=== PATIENT | female | born 1950 | race Caucasian/White ===

== ENCOUNTER 2017-06-27 09:30 | Emergency (ER) | payer MEDICARE, BC ==
[~2017-06-27] VITALS: Ht 167.6 cm; Wt 73.9 kg
[2017-06-27] MEDS ORDERED: SODIUM CHLORIDE 0.9% 1000ML 1,000 ML IV STA (10:01)
[2017-06-27] MEDS ORDERED: PROMETHAZINE 12.5MG/ NACL 0.9% 12.5 MG/50 ML BAG IV ONE ×2 (10:15→13:30)
[2017-06-27 10:19] LABS: BASOPHILS % 0.1 % (0.0-1.0); EOSINOPHILS % 0.5 % (0.0-6.0); HEMOGLOBIN 12.6 g/dL (12.0-16.0); LYMPHOCYTES # (AUTO) 0.5 (1.0-3.2); LYMPHOCYTES % 6.8 % (18.0-39.1); MEAN CORPUSCULAR HEMOGLOBIN 30.2 pg (28-32); MEAN CORPUSCULAR HGB CONC 34.1 g/dL (31-35); MEAN CORPUSCULAR VOLUME 88.7 fL (81-99); MONOCYTES # (AUTO) 0.5 (0.2-0.8); MONOCYTES % 6.9 % (4.4-11.3); NEUTROPHILS # (AUTO) 6.3 (2.1-6.9); NEUTROPHILS % 85.3 % (38.7-80.0); PLATELET COUNT 161 x10e3/uL (140-360); RED BLOOD COUNT 4.17 x10e6/uL (3.6-5.1); RED CELL DISTRIBUTION WIDTH 12.9 % (11.7-14.4)
[2017-06-27 10:24] LABS: BILIRUBIN,URINE 1+ (NEGATIVE); CLARITY,URINE CLOUDY (CLEAR); COLOR,URINE YELLOW (YELLOW); LEUKOCYTE ESTERASE ,URINE NEGATIVE (NEGATIVE); NITRITE,URINE NEGATIVE (NEGATIVE)
[2017-06-27 10:25] LABS: KETONES,URINE NEGATIVE (NEGATIVE); PROTEIN,URINE DIPSTICK NEGATIVE (NEGATIVE); URINE UROBILINOGEN 0.2 mg/dL (0.2 - 1)
[2017-06-27 10:34] LABS: EPITHELIAL CELLS,URINE FEW /LPF; RBC,URINE 0-5 /HPF (0-5)
[2017-06-27 10:36] LABS: ALANINE AMINOTRANSFERASE 130 IU/L (0-55); ALBUMIN 3.6 g/dL (3.5-5.0); ALBUMIN/GLOBULIN RATIO 1.1 (0.8-2.0); ALKALINE PHOSPHATASE 373 IU/L (40-150); ANION GAP 12.6 mmol/L (8-16); BLOOD UREA NITROGEN 14 mg/dL (7-26); BUN/CREATININE RATIO 16 (6-25); CALCIUM 9.7 mg/dL (8.4-10.2); CARBON DIOXIDE 26 mmol/L (22-29); CHLORIDE 103 mmol/L (98-107); CREATINE KINASE 35 IU/L (29-168); CREATININE, SERUM 0.86 mg/dL (0.57-1.11); EST GLOMERULAR FILTRATION RATE > 60 ML/MIN (60-); GLUCOSE 114 mg/dL (74-118); POTASSIUM 3.6 mmol/L (3.5-5.1); SODIUM 138 mmol/L (136-145)
--- NOTE | 2017-06-27 10:49 | Diagnostic Imaging Report ---
PROCEDURE: Frontal and lateral views of the chest. COMPARISON: Chest 2 views 01/31/2009. INDICATIONS: FEVER, VOMITING FINDINGS: Lines/tubes: None. Lungs: The lungs are well inflated and clear. There is no evidence of pneumonia or pulmonary edema. Pleura: There is no pleural effusion or pneumothorax. Heart and mediastinum: The heart and the mediastinum are normal. Bones: No acute bony abnormality. Degenerative changes of the thoracic spine. IMPRESSION: No acute radiographic abnormality. Dictated by: Shon Stephens M.D. on 06/27/2017 at 10:50 Electronically approved by: Shon Stephens M.D. on 06/27/2017 at 10:50
--- NOTE | 2017-06-27 12:44 | Diagnostic Imaging Report ---
PROCEDURE:US ABDOMEN LIMITED COMPARISON:None. INDICATIONS:elevated liver enzymes, ruq pain TECHNIQUE: Maya-scale and color doppler transverse and longitudinal images of the right upper quadrant of the abdomen were obtained. FINDINGS: Liver: 14.0 cm in right mid-clavicular line. Increased echogenicity. No masses. Main portal vein: 0.8 cm, hepatopetal flow Gallbladder: 1.6 cm rounded echogenic mobile focus in the gallbladder neck which does not show posterior acoustic shadowing or vascularity. No wall thickening or pericholecystic fluid. Common Bile Duct: 1.1 cm, moderately dilated. No intraluminal filling defects. Sonographic Lopez's sign: Negative Right kidney: 9.2 cm. Normal echogenicity. No solid masses or hydronephrosis. Pancreas: The visualized portions are unremarkable. Inferior vena cava: Patent Aorta: Proximal portion is obscured by overlying bowel gas. Mid and distal aorta are unremarkable. Ascites: None in the right upper quadrant of the abdomen. CONCLUSION: 1. Findings in the gallbladder likely represent sludge ball/tumefactive sludge. No echogenic stones. No sonographic evidence of cholecystitis. 2. Diffuse hepatic steatosis. No focal lesions. 3. Moderate dilation of the common bile duct. No intraluminal filling defects are noted. Contrast-enhanced MRI abdomen/MRCP would be helpful for evaluation, if there is clinical concern for choledocholithiasis. Zaid Estrada M.D. Dictated by: Zaid Estrada M.D. on 06/27/2017 at 12:45 Electronically approved by: Zaid Estrada M.D. on 06/27/2017 at 12:45
[2017-06-27 13:29] VITALS: BP 143/67
== END 2017-06-27 14:03 | disposition home or self-care (01) ==
LOC: ER 09:30
DX: R11.2 Nausea with vomiting, unspecified (principal); I10 Essential (primary) hypertension; E78.5 Hyperlipidemia, unspecified; K21.9 Gastro-esophageal reflux disease without esophagitis; E03.9 Hypothyroidism, unspecified
CPT/HCPCS: 36415; 71046; 76705; 80053; 81001; 82550; 82553; 84484; 85025; 99284; J2550; J7030

== ENCOUNTER → 2018-02-26 | Day surgery (SDC) | payer MEDICARE, BC ==
[2018-02-24 11:57] LABS: BASOPHILS % 0.4 % (0.0-1.0); EOSINOPHILS # (AUTO) 0.2 (0.0-0.4); HEMATOCRIT 35.1 % (34.2-44.1); HEMOGLOBIN 11.5 g/dL (12.0-16.0); LYMPHOCYTES # (AUTO) 1.4 (1.0-3.2); MEAN CORPUSCULAR HEMOGLOBIN 31.2 pg (28-32); MEAN CORPUSCULAR HGB CONC 32.8 g/dL (31-35); MEAN CORPUSCULAR VOLUME 95.1 fL (81-99); MONOCYTES # (AUTO) 0.4 (0.2-0.8); MONOCYTES % 8.7 % (4.4-11.3); NEUTROPHILS # (AUTO) 2.9 (2.1-6.9); NEUTROPHILS % 58.7 % (38.7-80.0); PLATELET COUNT 142 x10e3/uL (140-360); RED BLOOD COUNT 3.69 x10e6/uL (3.6-5.1); RED CELL DISTRIBUTION WIDTH 13.1 % (11.7-14.4)
[2018-02-24 12:19] LABS: ALANINE AMINOTRANSFERASE 10 IU/L (0-55); ALBUMIN 3.8 g/dL (3.5-5.0); ALBUMIN/GLOBULIN RATIO 1.5 (0.8-2.0); ALKALINE PHOSPHATASE 90 IU/L (40-150); ANION GAP 10.4 mmol/L (8-16); BLOOD UREA NITROGEN 14 mg/dL (7-26); BUN/CREATININE RATIO 17 (6-25); CALCIUM 9.6 mg/dL (8.4-10.2); CARBON DIOXIDE 32 mmol/L (22-29); CHLORIDE 107 mmol/L (98-107); CREATININE, SERUM 0.84 mg/dL (0.57-1.11); EST GLOMERULAR FILTRATION RATE > 60 ML/MIN (60-); GLUCOSE 94 mg/dL (74-118); POTASSIUM 4.4 mmol/L (3.5-5.1); SODIUM 145 mmol/L (136-145)
[~2018-02-26] MED LIST: BUPIVACAINE HCL 0.5% INJ 30 ML VIAL INJ ONE; BUTALB-ACETAMI1 EACH PO; DEXAMETHASONE SOD PHOS INJ 4 MG/ML VIAL ONE; DEXILANT60 MG PO; FAMOTIDINE20 MG PO; FENTANYL CITRATE/PF 100MCG/2 ML INJ ONE; GLYCOPYRROLATE INJ 1MG/ 5 ML SYR ONE; HEMP OIL PO; HYDRALAZINE HCL 20 MG/ML VIAL ONE; HYDROMORPHONE 2MG/ML 2 MG/ML ML ONE; LEVOFLOXACIN 500MG/D5W 100ML 100 ML IV ONE; LEVOTHYROXINE100 MC1 PO; LIDOCAINE HCL 2% LOCAL INJ 5 ML SDV VIAL INJ ONE; LYRICA75 MG PO; MAXALT MLT5 MG PO; MEPERIDINE HCL INJ 50 MG/ML INJ ONE; METOPROLOL TART50 MG PO; MIDAZOLAM HCL 2 MG/2 ML VIAL ONE; MULTI-VITAMIN1 EACH PO; NEOSTIGMINE 5 MG/5ML SYR ONE; OXYCONTIN10 MG PO; PRAVASTATIN SOD40 MG PO; PROMETHAZINE HCL (IM) 25 MG/ML VIAL ONE; PROPOFOL IV EMULSION 10 MG/ML 20 ML VIAL ONE; ROCURONIUM BROMIDE 10 MG/ML 5ML VIAL ONE; SEVOFLURANE INHAL SOLN 250 ML PEN BTL ONE; SUCRALFATE1 GM PO; VALTREX500 MG PO; ZOLPIDEM TARTRA10 MG PO
--- OUTSIDE RECORDS SUMMARY | 2018-02-26 07:54 | XMS REPORT | Clinical Summary ---
Author Author [facility] Address Unknown Phone Unavailable Care Team Providers Care Music Internship Name Role Phone Arslan Frazier PCP Allergies Comments Active Allergy Reactions Severity Noted Date Adhesive Bandage Medium 01/28/2018 Diarrhea Erythromycin Nausea And 11/20/2017 Vomiting Ibuprofen Hives 11/20/2017 Penicillins Rash Low 11/20/2017 Sulfa (Sulfonamide Nausea And 11/20/2017 Antibiotics) Vomiting Headache Ondansetron Hcl (Pf) Other (See 11/20/2017 Comments) Medications End Date Status Medication Sig Dispensed Refills Start Date Active dexlansoprazole Take 60 mg by 0 (DEXILANT) 60 mg capsule mouth 2 (two) times daily. Active levothyroxine (SYNTHROID, Take 100 mcg 0 LEVOTHROID) 100 MCG by mouth tablet Every morning on an empty stomach. Active pravastatin (PRAVACHOL) Take 40 mg by 0 40 MG tablet mouth daily. Active oxyCODONE (OXYCONTIN) 80 Take 80 mg by 0 MG 12 hr tablet mouth every 8 (eight) hours. Active metoprolol (LOPRESSOR) 50 Take 50 mg by 0 MG tablet mouth nightly. Active famotidine (PEPCID) 20 MG Take 40 mg by 0 tablet mouth nightly. Active estradiol (ESTRACE) 0.01 Place 2 g 0 % (0.1 mg/gram) vaginal vaginally cream once a week. Active valACYclovir (VALTREX) Take 500 mg 0 500 MG tablet by mouth daily. Active zolpidem (AMBIEN) 10 mg Take 10 mg by 0 tablet mouth every night as needed for Insomnia. Active rizatriptan (MAXALT-METAL MACHINE SETTER) Take 5 mg by 0 5 MG disintegrating mouth as tablet needed for Migraine May repeat in 2 hours if needed . Active folic acid (FOLVITE) 1 MG Take 1 mg by 0 tablet mouth daily. Active thiamine (VITAMIN B-1) Take 100 mg 0 100 MG tablet by mouth daily. Active multivitamin capsule Take 1 0 capsule by mouth daily. Active polyethylene glycol Take 17 g by 0 (GLYCOLAX) 17 gram packet mouth as needed. Active butalbital-acetaminophen- Take 1 tablet 0 caffeine (FIORICET, by mouth as ESGIC) 50-325-40 mg per needed for tablet Headaches. 11/20/2017 Discontinued paeeeyescy-tvbhpfv-[id number] Take by mouth 0 ne 50-325-40 mg Tab per as needed. tablet Active Problems Not on file Encounters Care Team Description Date Type Specialty Joleen Cabrera MD 01/28/2018 Anesthesia Gastroenterology Event Jose Coreas MD ERCP,BALLOON SWEEPING 01/28/2018 Surgery Gastroenterology Jose Coreas MD 01/28/2018 Hospital Gastroenterology Encounter Resource, [facility] Preadmit Phone 11/20/2017 Hospital Pre-Admission Testing Encounter after 02/25/2017 Social History Date Tobacco Use Types Packs/Day Years Used Never Smoker Smokeless Tobacco: Never Used Alcohol Use Drinks/Week oz/Week Comments No Sex Assigned at Date Recorded Not on file Industry Job Start Date Occupation Not on file Not on file Not on file Travel End Travel History Travel Start No recent travel history available. Last Filed Vital Signs Time Taken Vital Sign Reading 01/28/2018 3:05 PM ARBORIST REPRESENTATIVE Blood Pressure 134/72 01/28/2018 3:05 PM ARBORIST REPRESENTATIVE Pulse 80 01/28/2018 3:05 PM ARBORIST REPRESENTATIVE Temperature 36.7 C (98.1 F) 01/28/2018 3:05 PM ARBORIST REPRESENTATIVE Respiratory Rate 15 01/28/2018 3:05 PM ARBORIST REPRESENTATIVE Oxygen Saturation 97% - Inhaled Oxygen - Concentration 01/28/2018 12:47 PM ARBORIST REPRESENTATIVE Weight 67 kg (147 lb 12.8 oz) 01/28/2018 12:47 PM ARBORIST REPRESENTATIVE Height 167.6 cm (5' 6") 01/28/2018 12:47 PM ARBORIST REPRESENTATIVE Body Mass Index 23.86 Plan of Treatment Not on file Procedures Comments Procedure Name Priority Date/Time Associated Diagnosis [place] ERCP Routine 01/28/2018 2:32 PM ARBORIST REPRESENTATIVE REPORT OF PROCEDURE - 01/28/2018 ENDOSCOPY URL 2:29 PM ARBORIST REPRESENTATIVE ERCP,BALLOON DILATATION 01/28/2018 Calculus of bile duct 1:00 PM ARBORIST REPRESENTATIVE with cholangitis without obstruction, unspecified cholangitis acuity Imaging of gastrointestinal tract abnormal Common biliary duct obstruction Special Needs (C-ARM) ERCP,STENT REMOVAL 01/28/2018 Calculus of bile duct 1:00 PM ARBORIST REPRESENTATIVE with cholangitis without obstruction, unspecified cholangitis acuity Imaging of gastrointestinal tract abnormal Common biliary duct obstruction Special Needs (C-ARM) ERCP,PAPILLOTOMY 01/28/2018 Calculus of bile duct 1:00 PM ARBORIST REPRESENTATIVE with cholangitis without obstruction, unspecified cholangitis acuity Imaging of gastrointestinal tract abnormal Common biliary duct obstruction Special Needs (C-ARM) PROCEDURE W/ C-ARM 01/28/2018 Calculus of bile duct 1:00 PM ARBORIST REPRESENTATIVE with cholangitis without obstruction, unspecified cholangitis acuity Imaging of gastrointestinal tract abnormal Common biliary duct obstruction Special Needs (C-ARM) ERCP,BALLOON SWEEPING 01/28/2018 Calculus of bile duct 1:00 PM ARBORIST REPRESENTATIVE with cholangitis without obstruction, unspecified cholangitis acuity Imaging of gastrointestinal tract abnormal Common biliary duct obstruction Special Needs (C-ARM) after 02/25/2017 Results * [place] Endoscopic Retrograde Cholangiopancreatography (01/28/2018 2:32 PM ARBORIST REPRESENTATIVE) Narrative Performed At Addendum Begins RIS FINAL REPORT TECHNIQUE: Fluoroscopic images from endoscopic retrograde cholangiopancreatography were submitted for interpretation. INDICATION: Bile duct stones, abnormal imaging. COMPARISON: None. FINDINGS: Images show interrogation of the biliary system. Fluoroscopy time: 3.2 minutes Dose: 43.6 mGy IMPRESSION: Fluoroscopic images from an endoscopic retrograde cholangiopancreatography not obtained by the undersigned. Please refer to the endoscopy note for details of the procedure and findings. Signed: Shayne Price MD Report Verified Date/Time:01/29/2018 07:46:49 Reading Location: [address] Radiology Reading Room Addendum Ends FLUOROSCOPIC UNIT UTILIZED-NO INTERPRETATION REQUESTED. Procedure Note Interface, External Ris In - 01/29/2018 7:54 AM ARBORIST REPRESENTATIVE Addendum Begins FINAL REPORT TECHNIQUE: Fluoroscopic images from endoscopic retrograde cholangiopancreatography were submitted for interpretation. INDICATION: Bile duct stones, abnormal imaging. COMPARISON: None. FINDINGS: Images show interrogation of the biliary system. Fluoroscopy time: 3.2 minutes Dose: 43.6 mGy IMPRESSION: Fluoroscopic images from an endoscopic retrograde cholangiopancreatography not obtained by the undersigned. Please refer to the endoscopy note for details of the procedure and findings. Signed: Shayne Price MD Report Verified Date/Time: 01/29/2018 07:46:49 Reading Location: [address] Radiology Reading Room Addendum Ends FLUOROSCOPIC UNIT UTILIZED-NO INTERPRETATION REQUESTED. Performing Organization Address City/State/Zipcode Phone Number GE RIS * REPORT OF PROCEDURE - ENDOSCOPY URL (01/28/2018 2:29 PM ARBORIST REPRESENTATIVE) Narrative Performed At after 02/25/2017 Insurance Payer Benefit Subscriber ID Type Phone Address Plan / Group MEDICARE MEDICARE A xxxxxxxxxxx Medicare B BLUE CROSS/BLUE SHIELD BCBS xxxxxxxxxxxx [facility] [phone] [address] [place] [address] [place]) [place] [address]
--- OUTSIDE RECORDS SUMMARY | 2018-02-26 07:54 | XMS REPORT ---
Author Author [facility] Address Unknown Phone Unavailable Care Team Providers Care Management Professor Name Role Phone Krishan MEJÍA Unavailable Unavailable Payers Payer Name Policy Type Policy Number Effective Date Expiration Date Problems This patient has no known problems. Allergies, Adverse Reactions, Alerts Allergy Name Allergy Type Status Severity Reaction(s) Onset Date Inactive Date Treating Clinician Comments Sulfa (Sulfonamide Antibiotics) DA Active U 2017-09-27 00:00:00 morphine DA Active U 2016-06-26 00:00:00 ibuprofen DA Active U 2016-06-26 00:00:00 erythromycin base DA Active U 2016-06-26 00:00:00 ondansetron DA Active U 2016-06-26 00:00:00 penicillin G DA Active U 2016-06-26 00:00:00 Medications This patient has no known medications. Results Test Description Test Time Test Comments Text Results Atomic Results Result Comments [place], ERCP 2018-01-29 07:46:00 Reason for exam:->bile duct stones,abnormal imaging Addendum BeginsFINAL REPORT TECHNIQUE: Fluoroscopic images from endoscopic retrograde cholangiopancreatography were submitted for interpretation. INDICATION: Bile duct stones, abnormal imaging. COMPARISON: None. FINDINGS:Images show interrogation of the biliary system. Fluoroscopy time: 3.2 minutesDose: 43.6 mGy IMPRESSION:Fluoroscopic images from an endoscopic retrograde cholangiopancreatography not obtained by the undersigned. Please refer to the endoscopy note for details of the procedure and findings. Signed: Shayne Price Verified Date/Time: 01/29/2018 07:46:49 Reading Location: [address] Radiology Reading RoomAddendum EndsFLUOROSCOPIC UNIT UTILIZED-NO INTERPRETATION REQUESTED. T 2 VIEWS [facility] [address], [place] [address] Patient Name: FIDE WILDE MR #: [id number] : 1950 Age/Sex: 67/F Req #: [id number] Adm Physician: Ordered by: GISSELLE MEJÍA MD Report #: [id number] Location: ER Room/Bed: Procedure: [id number] DX/CHEST 2 VIEWS Exam Date: 06/27/17 Exam Time: 1030 REPORT STATUS: Signed PROCEDURE: Frontal and lateral views of the chest. COMPARISON: Chest 2 views 01/31/2009. INDICATIONS: FEVER, VOMITING FINDINGS: Lines/tubes: None. Lungs: The lungs are well inflated and clear. There is no evidence of pneumonia or pulmonary edema. Pleura: There is no pleural effusion or pneumothorax. Heart and mediastinum: The heart and the mediastinum are normal. Bones: No acute bony abnormality. Degenerative changes of the thoracic spine. IMPRESSION: No acute radiographic abnormality. Dictated by: June Harrison M.D. on 06/27/2017 at 10:50 Electronically approved by: June Harrison M.D. on 06/27/2017 at 10:50 Dictated By: JUNE HARRISON MD 1050 Transcribed By: ARIANA on 06/27/17 1050 COPY TO: GISSELLE MEJÍA MD ABDOMEN LIMITED [facility] [address] [place], [place] [address] Patient Name: FIDE WILDE MR #: [id number] : 1950 Age/Sex: 67/F Req #: [id number] Adm Physician: Ordered by: GISSELLE MEJÍA MD Report #: [id number] Location: Room/Bed: Procedure: [id number] US/US ABDOMEN LIMITED Exam Date: 06/27/17 Exam Time: 1113 REPORT STATUS: Signed PROCEDURE: US ABDOMEN LIMITED COMPARISON: None. INDICATIONS: elevated liver enzymes, ruq pain TECHNIQUE: Maya-scale and color doppler transverse and longitudinal images of the right upper quadrant of the abdomen were obtained. FINDINGS: Liver: 14.0 cm in right mid-clavicular line. Increased echogenicity. No masses. Main portal vein: 0.8 cm, hepatopetal flow Gallbladder: 1.6 cm rounded echogenic mobile focus in the gallbladder neck which does not show posterior acoustic shadowing or vascularity. No wall thickening or pericholecystic fluid. Common Bile Duct: 1.1 cm, moderately dilated. No intraluminal filling defects. Sonographic Lopez's sign: Negative Right kidney: 9.2 cm. Normal echogenicity. No solid masses or hydronephrosis. Pancreas: The visualized portions are unremarkable. Inferior vena cava: Patent Aorta: Proximal portion is obscured by overlying bowel gas. Mid and distal aorta are unremarkable. Ascites: None in the right upper quadrant of the abdomen. CONCLUSION: 1. Findings in the gallbladder likely represent sludge ball/tumefactive sludge. No echogenic stones. No sonographic evidence of cholecystitis. 2. Diffuse hepatic steatosis. No focal lesions. 3. Moderate dilation of the common bile duct. No intraluminal filling defects are noted. Contrast- enhanced MRI abdomen/MRCP would be helpful for evaluation, if there is clinical concern for choledocholithiasis. Awais Estrada M.D. Dictated by: Awais Estrada M.D. on 06/27/2017 at 12:45 Electronically approved by: Awais Estrada M.D. on 06/27/2017 at 12:45 Dictated By: AWAIS ESTRADA MD 1245 Transcribed By: ARIANA on 06/27/17 1245 COPY TO: GISSELLE MEJÍA MD
--- OUTSIDE RECORDS SUMMARY | 2018-02-26 07:54 | XMS REPORT ---
Author Author Myesha Villalobos [facility] [employer] Address Unknown Phone Unavailable Care Team Providers Care Metal Furnace Operator Name Role Phone Myesha Villalobos CP Unavailable Allergies, Adverse Reactions, Alerts Substance Reaction Event Type Penicillin Rash Drug Allergy Zofran Migraine Drug Allergy Ibuprofen rash Drug Allergy Erythromycin nausea/vomitting Drug Allergy Problems Problem Type Condition Code Onset Dates Condition Status Problem Gastritis and duodenitis K29.90 Active Assessment Senile osteoporosis M81.0 Active Problem Senile osteoporosis M81.0 Active Assessment Gastritis and duodenitis K29.90 Active Assessment Counseling NOS Z71.9 Active Medications Medication Code System Code Instructions Start Date End Date Status Dosage Dexilant [facility] 31161100559 60 MG Orally Once a day Active 1 capsule OxyContin [facility] 62752064730 80 MG Orally every 12 hrs Active 1 tablet Metoprolol Tartrate [facility] 76884811756 50 MG Orally Twice a day Active 1 tablet with food Zolpidem Tartrate [facility] 76182835760 10 MG Orally Once a day Active 1 tablet at bedtime as needed Estrace [facility] 46274182021 0.1 MG/GM Vaginal Active not defined CoQ-10 [facility] 98457868570 150 MG Orally Once a day Active 1 capsule with a meal Cyanocobalamin [facility] 52536143842 1000 MCG/ML Injection Active 1 ml Lyrica [facility] 15938594934 75 MG Orally Once a day Active 1 capsule 1 to 3 hours before bedtime in the evening Levothyroxine Sodium [facility] 64337461996 100 MCG Orally Once a day Active 1 tablet on an empty stomach in the morning Calcium Citrate + D3 [facility] 44215278456 250-200 MG-UNIT Orally Twice a day Active 1 tablet Valacyclovir HCl [facility] 38727609128 500 MG Orally Once a day Active 1 tablet Multivitamin Adult ND 68729337670 - Orally Active not defined Magnesium Glycinate Plus NDC 0 Active not defined Lisha Allergy [facility] 40210592924 180 MG Orally Once a day Active 1 tablet as needed Rizatriptan Benzoate [facility] 86577602316 5 MG Orally Once a day Active 1 tablet as needed one time Pravastatin Sodium [facility] 22024240404 40 MG Orally Once a day Active 1 tablet Famotidine [facility] 67044155463 20 MG Orally Once a day Active 1 tablet at bedtime Folic Acid [facility] 53350988833 1 MG Orally Once a day Active 1 tablet MiraLax [facility] 87279792652 - Orally Active not defined Abmxlfjysh-ZITN-Yugelzwk [facility] 21988104715 50-325-40 MG Orally every 4 hrs Active 1 capsule as needed Prolia [facility] 96862862119 60 MG/ML Subcutaneous June 12, 2017 Active as directed B1 Natural ND 19501860097 250 MG Orally Active not defined Vital Signs Date/Time: June 12, 2017 Height 66 in Blood Pressure Diastolic 75 mm Hg Blood Pressure Systolic 134 mm Hg Weight 162.8 lbs Results No Known Results Summary Purpose e[employer] Submission
--- NOTE | 2018-02-26 15:05 | Operative Report ---
DATE OF PROCEDURE: February 26, 2018 PREOPERATIVE DIAGNOSIS: Chronic cholecystitis. POSTOPERATIVE DIAGNOSIS: Chronic cholecystitis. PROCEDURES 1. Diagnostic laparoscopy. 2. Laparoscopic cholecystectomy. BLAST HOLE DRILLER: None. ANESTHESIA: General. INDICATIONS AND FINDINGS: Patient is a 67-year-old female who previously had endoscopic retrograde cholangiopancreatography for common bile duct stones. Workup now reveals gallbladder sludge with persistent nausea. At surgery, the patient's gallbladder was very distended with adhesions involving omentum over the neck and fundus of the gallbladder. Cystic duct was about 3 mm in diameter. Common bile duct was about 6 mm in diameter. Liver, stomach and lower abdomen all appeared normal. TECHNIQUE: After adequate general endotracheal anesthesia, with the patient in the supine position, the abdomen was prepped and draped in sterile fashion with ChloraPrep solution. Skin in the umbilicus was infiltrated with 1/2 percent Marcaine. Incision was made in the umbilicus. Abdominal wall was elevated, and a Veress needle was introduced. Pneumoperitoneum was then created. A 10-mm trocar and cannula were then passed through the umbilical wound. Laparoscopic camera was introduced. Initial laparoscopy revealed the gallbladder to be very distended. Liver, stomach and lower abdomen all appeared normal. A 10-mm trocar and cannula were placed in the epigastrium, and two 5-mm trocars and cannulas were placed in the right upper quadrant. These were placed under direct vision. Fundus of the gallbladder was grasped and retracted superiorly. There were some adhesions involving the omentum which were lysed. Neck of the gallbladder was grasped and retracted laterally. Peritoneum over the neck of the gallbladder was incised. The gallbladder-cystic duct junction was dissected free. Cystic artery was also dissected free. Cystic artery was divided between Hemoclips close to the gallbladder. Cystic duct was dissected free. The neck of the gallbladder was completely dissected free. Cystic duct was then divided between Hemoclips with 3 clips being left on the common bile duct side. The gallbladder was then dissected free from the liver using scissors and electrocautery. Once it was entirely free, it was placed into an Endo pouch and brought through the epigastric cannula. There were no stones palpable. Gallbladder bed was inspected for hemostasis, which was seen to be adequate. It was irrigated with saline. All fluid aspirated and inspected once again for hemostasis, which was seen to be adequate. Instruments and cannulas were then removed. Pneumoperitoneum was evacuated. Wounds were then closed. Fascia in the umbilical and epigastric wounds closed with #0 Vicryl. Skin to all wounds closed with alfreda. Sterile dressings applied to each wound. Patient tolerated the procedure well. Estimated blood loss was 10 mL. There were no complications. All counts were correct. Patient was taken to the recovery room in satisfactory condition. Job#: [id number] cc:MD BG HARRY MD
[2018-02-26 15:45] VITALS: BP 130/70
== END | disposition home or self-care (01) ==
LOC: OR 07:51
PROVIDERS: ATTEND Surgery
DX: K81.1 Chronic cholecystitis (principal); K82.8 Other specified diseases of gallbladder; K21.9 Gastro-esophageal reflux disease without esophagitis; K44.9 Diaphragmatic hernia without obstruction or gangrene; K27.9 Peptic ulcer, site unspecified, unspecified as acute or chronic, without hemorrhage or perforation; G61.81 Chronic inflammatory demyelinating polyneuritis; I10 Essential (primary) hypertension; R00.1 Bradycardia, unspecified; E03.9 Hypothyroidism, unspecified; E78.5 Hyperlipidemia, unspecified; F41.9 Anxiety disorder, unspecified; Z88.1 Allergy status to other antibiotic agents; Z88.0 Allergy status to penicillin; Z88.2 Allergy status to sulfonamides; Z88.8 Allergy status to other drugs, medicaments and biological substances; Z01.810 Encounter for preprocedural cardiovascular examination; Z01.812 Encounter for preprocedural laboratory examination
CPT/HCPCS: 36415; 47562; 80053; 85025; 88304; 93005; J0360; J1100; J1170; J1956; J2001; J2175; J2250; J2550; J2704; J3490

== ENCOUNTER 2019-01-30 12:30 | Emergency (ER) | payer MEDICARE, BC ==
[~2019-01-30] VITALS: Ht 167.6 cm; Wt 73.9 kg
[~2019-01-30 12:30] MED LIST changes: -BUPIVACAINE HCL 0.5% INJ 30 ML VIAL INJ ONE; -DEXAMETHASONE SOD PHOS INJ 4 MG/ML VIAL ONE; -FENTANYL CITRATE/PF 100MCG/2 ML INJ ONE; -GLYCOPYRROLATE INJ 1MG/ 5 ML SYR ONE; -HYDRALAZINE HCL 20 MG/ML VIAL ONE; -HYDROMORPHONE 2MG/ML 2 MG/ML ML ONE; -LEVOFLOXACIN 500MG/D5W 100ML 100 ML IV ONE; -LIDOCAINE HCL 2% LOCAL INJ 5 ML SDV VIAL INJ ONE; -MEPERIDINE HCL INJ 50 MG/ML INJ ONE; -MIDAZOLAM HCL 2 MG/2 ML VIAL ONE; -NEOSTIGMINE 5 MG/5ML SYR ONE; -PROMETHAZINE HCL (IM) 25 MG/ML VIAL ONE; -PROPOFOL IV EMULSION 10 MG/ML 20 ML VIAL ONE; -ROCURONIUM BROMIDE 10 MG/ML 5ML VIAL ONE; -SEVOFLURANE INHAL SOLN 250 ML PEN BTL ONE
[2019-01-30 13:47] LABS: BASOPHILS % 0.3 % (0.0-1.0); EOSINOPHILS % 0.6 % (0.0-6.0); HEMATOCRIT 36.9 % (34.2-44.1); HEMOGLOBIN 12.6 g/dL (12.0-16.0); LYMPHOCYTES # (AUTO) 0.6 (1.0-3.2); LYMPHOCYTES % 9.3 % (18.0-39.1); MEAN CORPUSCULAR HEMOGLOBIN 30.7 pg (28-32); MEAN CORPUSCULAR HGB CONC 34.1 g/dL (31-35); MONOCYTES # (AUTO) 0.3 (0.2-0.8); MONOCYTES % 5.1 % (4.4-11.3); NEUTROPHILS # (AUTO) 5.5 (2.1-6.9); NEUTROPHILS % 84.2 % (38.7-80.0); PLATELET COUNT 169 x10e3/uL (140-360); RED CELL DISTRIBUTION WIDTH 12.4 % (11.7-14.4)
[2019-01-30 13:48] LABS: BILIRUBIN,URINE SMALL (NEGATIVE); CLARITY,URINE SL CLOUDY (CLEAR); COLOR,URINE YELLOW (YELLOW); LEUKOCYTE ESTERASE ,URINE TRACE (NEGATIVE); NITRITE,URINE NEGATIVE (NEGATIVE); PROTEIN,URINE DIPSTICK 1+ (NEGATIVE); URINE UROBILINOGEN 1 mg/dL (0.2 - 1)
[2019-01-30 13:57] LABS: KETONES,URINE 3+ (NEGATIVE)
[2019-01-30 14:03] LABS: ALANINE AMINOTRANSFERASE 11 IU/L (0-55); ALBUMIN 3.6 g/dL (3.5-5.0); ALBUMIN/GLOBULIN RATIO 1.1 (0.8-2.0); ALKALINE PHOSPHATASE 126 IU/L (40-150); ANION GAP 14.2 mmol/L (8-16); BLOOD UREA NITROGEN 14 mg/dL (7-26); BUN/CREATININE RATIO 17 (6-25); CALCIUM 9.9 mg/dL (8.4-10.2); CARBON DIOXIDE 26 mmol/L (22-29); CHLORIDE 103 mmol/L (98-107); CREATININE, SERUM 0.84 mg/dL (0.57-1.11); EST GLOMERULAR FILTRATION RATE > 60 ML/MIN (60-); GLUCOSE 100 mg/dL (74-118); POTASSIUM 3.2 mmol/L (3.5-5.1); SODIUM 140 mmol/L (136-145)
[2019-01-30 14:06] LABS: BACTERIA,URINE MODERATE /HPF; EPITHELIAL CELLS,URINE MODERATE /LPF
[2019-01-30] MEDS ORDERED: PROMETHAZINE 12.5MG/ NACL 0.9% 50 ML IV ONE (14:15)
[2019-01-30] MEDS ORDERED: PROMETHAZINE 12.5MG/ NACL 0.9% 12.5 MG/50 ML BAG IV ONE (14:15)
--- NOTE | 2019-01-30 16:25 | Diagnostic Imaging Report ---
Exam: KUB - 2 views Indication: Abdominal pain, nausea Comparison: None Findings: Nonobstructive bowel gas pattern. No evidence of free intraperitoneal air. No evidence of abnormal calcification. No acute bony abnormality. Status post cholecystectomy. The partially visualized lung bases are clear. Impression: No acute radiographic abnormality. Signed by: Usha Brenner MD on 01/30/2019 4:22 PM
[2019-01-30] MEDS ORDERED: POTASSIUM CHLORIDE 20 MEQ TAB CR PO ONE (16:53)
[2019-01-30] MEDS ORDERED: ONDANSETRON HCL INJ 2MG/ML 2ML 2 MG/ML VIAL IV STA (16:53)
[2019-01-30] MEDS ORDERED: PHENERGAN SUPP25 MG PR (17:23)
[2019-01-30] MEDS ORDERED: ULTRAM50 MG PO (17:23)
[2019-01-30] MEDS ORDERED: CEFDINIR300 MG PO (17:23)
== END 2019-01-30 18:04 | disposition home or self-care (01) ==
LOC: ER 12:30
DX: R10.9 Unspecified abdominal pain (principal); R11.2 Nausea with vomiting, unspecified; N30.91 Cystitis, unspecified with hematuria; E87.6 Hypokalemia; K52.9 Noninfective gastroenteritis and colitis, unspecified; K21.9 Gastro-esophageal reflux disease without esophagitis; I10 Essential (primary) hypertension; E78.5 Hyperlipidemia, unspecified; E03.9 Hypothyroidism, unspecified
CPT/HCPCS: 36415; 74019; 80053; 81001; 82150; 83690; 85025; 93005; 99283; J2550